=== PATIENT | female | born 1940 | race Caucasian/White ===

== ENCOUNTER 2017-11-10 08:54 | Emergency (ER) | payer MEDICARE ==
[2017-11-10 10:44] LABS: #Eosinphils 0.3 thou/uL (0.0-0.7); #Lymphocytes 1.4 thou/uL (1.20-3.40); #Monocytes 0.7 thou/uL (0.11-0.59); #Neutrophils 2.5 thou/uL (1.40-6.50); %Basophils 0.2 % (0.0-1.0); %Eosinophils 5.6 % (0.0-10.0); %Lymphocytes 28.6 % (21.0-51.0); %Monocytes 14.5 % (0.0-10.0); %Neutrophils 51.1 % (42.0-75.0); Hemoglobin 14.8 g/dL (12.0-16.0); Mean Corpuscular Hemoglobin 29.2 pg (27.0-31.0); Mean Corpuscular Volume 88.6 fl (81.0-99.0); Mean Platelet Volume 8.5 fL (7.4-10.4); Platelet Count 167 thou/uL (130-400); RBC Distribution Width 12.8 % (11.5-14.5); Red Blood Cell (RBC) Count 5.05 mill/uL (4.20-5.40)
[2017-11-10 11:09] LABS: ALT (SGPT) 16 U/L (8-55); AST (SGOT) 22 U/L (5-34); Albumin 3.9 g/dL (3.4-4.8); Alkaline Phosphatase 80 U/L (40-150); Anion Gap 10 mmol/L (10-20); BUN (Urea Nitrogen) 15 mg/dL (9.8-20.1); Bilirubin, Total 0.3 mg/dL (0.2-1.2); Calc. Creatinine Clearance 0 mL/min (70-130); Carbon Dioxide 27 mmol/L (23-31); Chloride 104 mmol/L (98-107); Estimated GFR-MDRD 66; Globulin 2.5 g/dL (2.4-3.5); Glucose 99 mg/dL (83-110); Lipase 12 U/L (8-78); Protein, Total 6.4 g/dL (6.0-8.3); Sodium 137 mmol/L (136-145)
--- NOTE | 2017-11-10 11:19 | RAD ---
PA AND LATERAL CHEST: Date: 11/10/17 HISTORY: Cough, chest pain. Shortness of breath. COMPARISON: 09/23/16. FINDINGS: Lungs remain hyperinflated. There is mild flattening of the hemidiaphragms with suggestion of lucenci es within the upper lobes likely related to emphysematous changes. The linear densities at the left l amari base are again seen and are stable when compared to the prior study, and were also seen on study on 02/13/07, and while slightly more prominent than on that exam, are probably related to areas of sc arring. No discrete pulmonary nodule, mass, or pleural effusion is seen. Vascular calcifications seen in thoracic aorta. [place] screws again overlie the humeral head. IMPRESSION: 1. Stable chest without evidence of an acute cardiopulmonary process. 2. COPD. POS: [facility]
[2017-11-10] MEDS ORDERED: methylPREDNISolone Sod Succ/PF 125 MG/2 ML VIAL ONE (13:32)
== END 2017-11-10 14:34 | disposition home or self-care (01) ==
LOC: ERS 08:54
DX: J44.9 Chronic obstructive pulmonary disease, unspecified (principal); E03.9 Hypothyroidism, unspecified; E78.5 Hyperlipidemia, unspecified; F32.9 Major depressive disorder, single episode, unspecified; F17.210 Nicotine dependence, cigarettes, uncomplicated; Z79.82 Long term (current) use of aspirin; Z79.899 Other long term (current) drug therapy
CPT/HCPCS: 71046; 80053; 82274; 83690; 85025; 87045; 87046; 87449; 87899; 93005; 94640; 96361; 96374; J2930; J7620

== ENCOUNTER 2018-01-06 07:10 | Outpatient (CLI) | payer MEDICARE ==
--- NOTE | 2018-01-06 10:50 | CT ---
CT ABDOMEN WITH AND WITHOUT IV CONTRAST CT PELVIS WITH IV CONTRAST: Date: 01/06/18 HISTORY: Irritable bowel syndrome with diarrhea. Weight loss. COMPARISON: None available. FINDINGS: There is minimal scarring versus atelectasis at the right lung base. Lung bases are otherwise clear. Degenerative changes are seen in the spine. There is unilateral left-sided pars defect on the left at L5 with mild irregularity of the pars interarticularis on the right without definite pars defect vis ualized. There is a punctate, nonobstructing superior pole right renal calculus. There is also mild scarring i nvolving the superior pole of the right kidney. Kidneys otherwise demonstrate a normal CT appearance bilaterally. Calcified granulomata are seen in the spleen. The liver, pancreas, bilateral adrenal glands, and opacified small bowel demonstrate a normal CT appe arance. There is colonic diverticulosis. The appendix is visualized and normal in caliber. There is a slightl y lobulated appearance to the uterine fundus which could be related to fibroid, but this cannot be de finitely characterized on this exam. No free fluid, fluid collection, or lymphadenopathy is seen in the abdomen or pelvis. IMPRESSION: 1. No acute findings are seen in the abdomen or pelvis. 2. Punctate, nonobstructing superior pole right renal calculus with mild scarring in the superior po le of right kidney. 3. Colonic diverticulosis. 4. No CT evidence of appendicitis. 5. No acute findings are seen in the abdomen or pelvis. 6. Pars defects at L5. POS: [facility]
[2018-01-06] MEDS ORDERED: Iopamidol 370 76% 100 ML VIAL ONE (13:05)
== END 2018-01-06 07:11 | disposition home or self-care (01) ==
LOC: CT 07:10
PROVIDERS: ATTEND Internal Medicine Gastroenterology
DX: K58.0 Irritable bowel syndrome with diarrhea (principal); R19.7 Diarrhea, unspecified; R63.4 Abnormal weight loss; N20.0 Calculus of kidney; K57.30 Diverticulosis of large intestine without perforation or abscess without bleeding
CPT/HCPCS: 74178

== ENCOUNTER 2018-10-28 08:31 | Inpatient (IN) | payer MEDICARE ==
--- NOTE | 2018-10-28 09:37 | CT ---
CT HEAD NONCONTRAST: HISTORY: Fall. Head injury. COMPARISON: 12/19/2015 FINDINGS: A small amount of irregular-shaped, hyperdense fluid lies on each side of the anterior falx. A small amount of the fluid extends into a sulcus at the medial aspect of the right frontal lobe. There is no mass effect or shift of midline structures. Diffuse cortical atrophy, chronic ischemic small vess el disease, and old left frontoparietal infarct are stable. Visualized paranasal sinuses remain well aerated. Comminuted, slightly depressed nasal bone fracture is apparent on the inferior-most images , with fluid and mucosal thickening in the maxillary sinuses and ethmoid air cells. IMPRESSION: 1. Small amount of subdural and subarachnoid hemorrhage involving and adjacent to the anterior falx. Findings were called to Dr. Graf in the emergency department at 0902 hours. 2. Nasal bone fracture and facial injury, partially visualized. CT face is pending. CODE CR POS: [facility]
[2018-10-28 09:39] LABS: Bilirubin Negative (Negative); Blood, Urine Small (Negative); Clarity CLEAR (Clear); Glucose, Urine (Dipstick) Negative (Negative); Leukocyte Negative (Negative); Nitrite Negative (Negative); Protein, Urine (Dipstick) Negative (Neg-Trace); Specific Gravity, Urine 1.012 (1.002-1.036); Urobilinogen 0.2 mg/dL (0.2-1.0); pH, Urine 6.5 (5.0-9.0)
[2018-10-28 09:41] LABS: #Basophils 0.1 thou/uL (0.0-0.2); #Eosinphils 0.2 thou/uL (0.0-0.7); #Lymphocytes 1.2 thou/uL (1.20-3.40); #Monocytes 0.9 thou/uL (0.11-0.59); #Neutrophils 12.4 thou/uL (1.40-6.50); %Basophils 0.5 % (0.0-1.0); %Eosinophils 1.3 % (0.0-10.0); %Monocytes 5.8 % (0.0-10.0); %Neutrophils 84.5 % (42.0-75.0); Hemoglobin 16.1 g/dL (12.0-16.0); Mean Corpuscular HGB CONC 31.4 g/dL (32.0-36.0); Mean Corpuscular Hemoglobin 28.6 pg (27.0-31.0); Mean Platelet Volume 8.7 fL (7.4-10.4); Platelet Count 208 thou/uL (130-400); RBC Distribution Width 13.2 % (11.5-14.5); Red Blood Cell (RBC) Count 5.65 mill/uL (4.20-5.40); White Blood Cell (WBC) Count 14.7 thou/uL (4.8-10.8)
--- NOTE | 2018-10-28 09:41 | CT ---
CT FACE NONCONTRAST: History: Fall, facial injury. FINDINGS: Large amount of swelling over the nasal bridge and forehead. Comminuted fracture of the base of the n joel bones is present with minimal rightward deviation of the anterior portion of the nasal bones. Sm all amount of subcutaneous gas from the laceration. There is acute leftward angulation of the anterio r nasal septum with an acute nondisplaced fracture. Blood and mucosal thickening are present througho ut the ethmoid air cells. Right maxillary sinus is mainly filled with acute hemorrhage. Fluid in the left maxillary sinus predominately represents chronic mucosal thickening and inspissated mucus. The g lobes, mandible and zygomatic arches are intact. There are degenerative changes of each temporomandib ular joint. IMPRESSION: Comminuted mildly displaced nasal bone fracture. Fracture of the nasal septum. Overlying soft tissue swelling with some blood in the paranasal sinuses. POS: [facility]
[2018-10-28 09:42] LABS: Bacteria/HPF None Seen HPF (None Seen); Hyaline Casts/LPF 7-10 HYALINE CAST LPF (0-3 Hyaline); Pathc Cast-AUWi Flag 2.32 (0-2.49); Squamous Epithelial 0-3 HPF (0-3); WBC/HPF 0-3 HPF (0-3)
--- NOTE | 2018-10-28 09:43 | CT ---
NONCONTRAST CT CERVICAL SPINE: Date: 10/28/18 HISTORY: Unwitnessed fall last night. Unknown down time. TECHNIQUE: Contiguous axial CT images are obtained through the cervical spine from the skull base to the T1-2 le juliette. Sagittal and coronal reformatted images are provided. FINDINGS: No fracture or subluxation is seen involving the cervical spine. There are scattered degenerative noble nges in the cervical spine, including facet degenerative changes. There is narrowing of the C5-6 inte rvertebral disc space with posterior osteophyte formation seen at this level. However, there is no si gnificant bony encroachment on the central spinal canal at any level. There is mild right-sided neura l foraminal narrowing at the C3-4 level with mild left-sided neural foraminal narrowing at the C5-6 l evel. The prevertebral soft tissues are within normal limits. There is fluid and increased density material in each maxillary antrum suggesting hemorrhage. There is also a small amount of fluid within the pos terior nasopharynx. IMPRESSION: 1. No fracture or subluxation involving the cervical spine. 2. Mild degenerative changes in the spine. 3. Small amount of hemorrhage in each maxillary antrum with fluid in the posterior nasopharynx. This is better evaluated on CT facial bones. POS: [facility]
[2018-10-28 09:49] LABS: PTT 28.8 SEC (22.9-36.1); Prothrombin Time 12.8 SEC (12.0-14.7)
[2018-10-28 09:50] LABS: Benzodiazepine Screen Detected (NotDetected); Medtox Reader # READER 1
[2018-10-28 09:51] LABS: Amphetamine Not Detected (NotDetected); Barbiturates Screen Not Detected (NotDetected); Cocaine Metabolite Screen Not Detected (NotDetected); Medtox Control Line Valid? VALID (VALID); Methadone Not Detected (NotDetected); Methamphetamine Not Detected (NotDetected); Opiate Screen Not Detected (NotDetected); Oxycodone Screen Not Detected (NotDetected); Phencyclidine (PCP) Not Detected (NotDetected); THC/Cannabinoid Screen Not Detected (NotDetected); Tricyclic Screen Not Detected (NotDetected)
[2018-10-28 10:10] LABS: ALT (SGPT) 13 U/L (8-55); AST (SGOT) 25 U/L (5-34); Albumin 4.4 g/dL (3.4-4.8); Alkaline Phosphatase 81 U/L (40-150); Anion Gap 15 mmol/L (10-20); BUN (Urea Nitrogen) 17 mg/dL (9.8-20.1); Bilirubin, Total 0.7 mg/dL (0.2-1.2); Calc. Creatinine Clearance 0 mL/min (70-130); Calcium 9.7 mg/dL (7.8-10.44); Carbon Dioxide 22 mmol/L (23-31); Chloride 106 mmol/L (98-107); Estimated GFR-MDRD 69; Globulin 2.8 g/dL (2.4-3.5); Glucose 102 mg/dL (83-110); Potassium 4.2 mmol/L (3.5-5.1); Protein, Total 7.2 g/dL (6.0-8.3); Sodium 139 mmol/L (136-145)
[2018-10-28 10:12] LABS: Acetaminophen Less than 6.0 mcg/mL (10.0-30.0); Alcohol Less than 10 mg/dL (Less than 10); CK (CPK) 321 U/L (29-168); Salicylate Less than 8.0 mg/dL (15.0-30.0)
[2018-10-28] MEDS ORDERED: Promethazine HCl 25 MG/ML VIAL IM PRN (11:27)
[2018-10-28] MEDS ORDERED: Dextrose 50% Abboject 50 ML SYRINGE SLOW IVP PRN (11:27)
[2018-10-28] MEDS ORDERED: Dextrose 5% in Water 1,000 ML IV PRN (11:27)
[2018-10-28] MEDS ORDERED: hydrALAZINE 20 MG/ML VIAL SLOW IVP PRN (11:27)
[2018-10-28] MEDS ORDERED: Ondansetron PF 4 MG/2 ML Vial IVP PRN (11:27)
--- NOTE | 2018-10-28 11:43 | HP ---
TRAUMA SURGEON: Rui Krishna DO CONSULTING PHYSICIAN: Dr. Hussein, Neurosurgery. HISTORY OF PRESENT ILLNESS: Ms. Gonzalez is a 78-year-old female, who was brought to the Emergency Department after a suicidal attempt, where she reports drinking whiskey and taking 100 mg of Xanax yesterday. She reports she has been wanting to for the past 3 years since her . The patient was found at her assisted living facility face down with a blood around her. EMS was called and she arrived to the Emergency Department, where she received a CT of the head and C-spine, as well as the face. At that time, it demonstrated she had a subdural and subarachnoid hemorrhages as well as a nasal bone fracture. Neurosurgery was consulted, who recommended a repeat head CT and neuro checks. REVIEW OF SYSTEMS: All additional review of systems negative except as indicated. PAST MEDICAL HISTORY: COPD, suicidal ideation, CVA, hypertension, and hypothyroidism. PAST SURGICAL HISTORY: None. SOCIAL HISTORY: The patient lives independently at an assisted living facility. She has been suicidal since her 3 years ago. She smokes cigarettes every day. Denies daily alcohol use and denies history of drug use. MEDICATIONS: 1. Synthroid. 2. Plavix. 3. Zocor. 4. Lisinopril. 5. Zoloft. 6. Xanax. 7. Aspirin. 8. One a day women's vitamin. 9. Vitamin B12. 10. Lasix. 11. Estradiol. ALLERGIES: CODEINE. PHYSICAL EXAMINATION: VITAL SIGNS: Blood pressure 166/84, pulse 92, respirations 20, oxygen saturation 92% on room air, and temperature 97.9 degrees. PRIMARY ASSESSMENT: Airway intact, but with blood in the oropharynx. Bleeding seems to be controlled. Adequate breath sounds bilaterally. 2+ pulses in bilateral radial, femorals, and DPs. GCS is 14, negative 1 for eyes. Gross motor and sensation are intact. Pupils are equal, round, and reactive to light. Blood in the oropharynx and dried blood in the bilateral nares, but no signs of any active bleeding. No bruises noted. SECONDARY SURVEY: HEAD: Normocephalic. Periorbital bruising bilaterally, swelling of the mid face and nasal bone, swelling of the upper lip. No palpable skull deformities or tenderness. EYES: Pupils 3 to 2 bilaterally. Pupils are equal, round, and reactive to light. ENT: No hemotympanum. Positive epistaxis. No septal hematoma. Midface is stable. Positive blood in the oropharynx. Dentition is intact. No anterior neck injury or crepitus. C-spine: No step-offs or deformities. Nontender. C-collar is in place. ABDOMEN: Soft, nontender, and nondistended. PELVIS: Stable to manipulation. Nontender. No bruises. RECTAL: Deferred. GENITOURINARY: Deferred. EXTREMITIES: No gross palpable deformities. No abrasions or ecchymosis noted. 2+ pulses in the bilateral femorals, radials, and DP. BACK OR SPINE: No step-offs or deformities or tenderness to palpation of the thoracic or lumbar spine. No abrasions or ecchymosis noted. 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 Plantar flexion and dorsiflexion. Gross motor and sensation intact. GCS 14, -1 for eyes. LABORATORY VALUES: White count 14.7, hemoglobin 16.1, hematocrit 51.4, and platelets 208. INR 1.0. Sodium 139, potassium 4.2, chloride 106, carbon dioxide 22, BUN 12, and creatinine 0.81. Toxicology screen positive for benzodiazepines. Plasma alcohol is less than 10. DIAGNOSTIC FINDINGS: CT of the brain demonstrates small amount of subdural and subarachnoid hemorrhages involving adjacent to the anterior falx and a nasal bone fracture and facial injury. ASSESSMENT: 1. Status post fall from standing. 2. Suicidal attempt with suicidal ideations. 3. Subdural and subarachnoid hemorrhages. 4. Nasal bone fracture. 5. History of chronic obstructive pulmonary disease, suicidal ideations, cerebrovascular accident, hypertension, and hypothyroidism. PLAN: The patient will be admitted to the ICU. Q.1 hour neuro checks. Goal systolic blood pressure is less than 160 mmHg. Elevate the patient's head at 30 degrees. Monitor mentation closely and advise the Trauma Team immediately if any changes in GCS. We will keep the patient n.p.o. for now. Neurosurgery, Dr. Hussein was consulted pending his formal recommendations. We will also consult metal trimmer for nasal bone fractures. Close monitoring of the patient's airway is also warranted as she has significant midface swelling and blood in her oropharynx. Will continuous pulse ox and suction at bedside. The patient will be on suicidal precautions as well. She can see Physical and Occupational Therapy as well as Speech for cognitive and swallow evaluation. The patient was seen and examined by Dr. Krishna and myself today in the Emergency Department. Job ID: [id number] MTDD
[2018-10-28 12:14] VITALS: BMI 26.2
[2018-10-28] MEDS: Dexamethasone 4 mg/ml Vial SLOW IVP SCH ×2 (12:39→18:36)
[2018-10-28] MEDS: Sodium Chloride 0.9% 1,000 ML IV SCH ×2 (12:50→21:07)
[2018-10-28] MEDS: Morphine 2 MG/ML SYRINGE SLOW IVP PRN ×2 (13:23→15:52)
--- NOTE | 2018-10-28 20:32 | CON ---
DATE OF CONSULTATION: 10/28/2018 This is a 50-minute initial patient evaluation of which greater than 50% of the exam was spent in counseling and coordinating the patient's care. Remainder of the exam was spent in review of the patient's medical records and review of appropriate imaging studies. CHIEF COMPLAINT: Status post fall with subdural and traumatic subarachnoid hemorrhage along the anterior falx. SUBJECTIVE: Ms. Gonzalez is a 78-year-old female, who presented to [facility] when she was found down by [facility] staff members. Apparently, the patient supposedly attempted to commit suicide in which she overdosed on Xanax and consumed a significant amount of alcohol. She was found with significant bruising to the entire face and again presented to the emergency room. Review of patient's head CT notes, small subdural and traumatic subarachnoid hemorrhage along the anterior falx. The patient's daughter and are present at bedside. The patient was on 81 mg aspirin and Plavix for history of stroke several years ago. The patient does not complain of any neck pain. PHYSICAL EXAMINATION: The patient prefers to keep her eyes closed. She has significant abrasions to her face, as well as significant ecchymosis surrounding the bilateral eyes. Pupils are equal, round, and reactive bilaterally and she is able to open the eyes to command. GCS currently is 15. The patient follows commands in all 4 extremities. She has no tenderness to palpation in the cervical spine. IMPRESSION AND DIAGNOSIS: Status post fall with suspected attempted suicide with benzodiazepine and ethanol overdose, found with small subdural hematoma and traumatic subarachnoid hemorrhage along the anterior falx. PLAN: Discussed the patient's case and imaging with Dr. Hussein. Her cervical spine CT is negative for fracture. Her Plavix and aspirin are held. Our trauma colleagues have graciously admitted the patient. We will continue to follow her. She will likely have concussive-like syndrome and I have explained this in great detail to the patient's family. Also let them know that given the trace amount of blood along the falx, the patient does not require neurosurgical intervention. She likely will need inpatient psychiatric treatments given the suspected attempted suicide. At that time, the patient is neurologically stable and we have asked for q.1 hour neuro checks. We again will plan to repeat head CT in the morning, sooner should symptoms dictate. I would like her systolic blood pressure to be less than 150. Please call with any changes in patient's neurologic status. Job ID: [id number]
[2018-10-28] MEDS: Famotidine/PF 20 mg/2ml Vial SLOW IVP SCH (21:07)
[2018-10-29] MEDS: Dexamethasone 4 mg/ml Vial SLOW IVP SCH ×2 (01:13→06:21)
[2018-10-29 05:57] LABS: Anion Gap 13 mmol/L (10-20); BUN (Urea Nitrogen) 19 mg/dL (9.8-20.1); Calc. Creatinine Clearance 68 mL/min (70-130); Calcium 8.9 mg/dL (7.8-10.44); Carbon Dioxide 20 mmol/L (23-31); Chloride 109 mmol/L (98-107); Estimated GFR-MDRD 70; Glucose 141 mg/dL (83-110); Magnesium 2.1 mg/dL (1.6-2.6); Phosphorus 4.5 mg/dL (2.3-4.7); Potassium 4.4 mmol/L (3.5-5.1); Sodium 138 mmol/L (136-145)
[2018-10-29 06:05] LABS: #Lymphocytes 1.5 thou/uL (1.20-3.40); #Monocytes 0.2 thou/uL (0.11-0.59); #Neutrophils 12.9 thou/uL (1.40-6.50); %Basophils 0.1 % (0.0-1.0); %Eosinophils 0.1 % (0.0-10.0); %Lymphocytes 10.1 % (21.0-51.0); %Monocytes 1.5 % (0.0-10.0); %Neutrophils 88.2 % (42.0-75.0); Hemoglobin 14.6 g/dL (12.0-16.0); Mean Corpuscular HGB CONC 31.3 g/dL (32.0-36.0); Mean Corpuscular Hemoglobin 29.2 pg (27.0-31.0); Mean Corpuscular Volume 93.2 fL (78.0-98.0); Mean Platelet Volume 9.1 fL (7.4-10.4); Platelet Count 215 thou/uL (130-400); White Blood Cell (WBC) Count 14.7 thou/uL (4.8-10.8)
[2018-10-29] MEDS: Sodium Chloride 0.9% 1,000 ML IV SCH (06:22)
--- NOTE | 2018-10-29 08:26 | CT ---
PRELIMINARY REPORT/[facility]/EMERGENTY AFTER-HOURS PROCEDURE CT Head Without Contrast EXAM DATE/TIME: 10/29/2018 4:27 AM CLINICAL HISTORY: 78 years old, female; Injury or trauma; Fall; Follow-up exam; Blunt trauma (contusions or hematomas); Consciousness not specified; Patient HX: F/u, PT had recent fall. Evaluate tbi. TECHNIQUE: Axial computed tomography images of the head/brain without contrast. COMPARISON: CT Brain WO Con 10/28/2018 8:53 AM FINDINGS: Brain: Recent comparison exam showed small amounts of subarachnoid blood in the frontal regions, and probably a very small amount of subdural blood adjacent to the anterior falx on the left. The previou sly seen areas of hemorrhage are now barely perceptible, with only minimal visible subarachnoid and parafalcine subdural blood in the frontal regions. No definite new hemorrhage in the interval. No significant mass effect or midline shift. There is dec reased attenuation in the periventricular white matter, likely from microvascular disease. Small old infarcts in the inferior right occipital region and posterior left parietal region, unchanged. No definite acute infarct by CT. Ventricles: Ventricle size is normal for age. Bones/joints: No definite new skull fracture. Sinuses: Paranasal sinus opacities similar to recent comparison exam. Mastoid air cells: No significant acute finding. IMPRESSION: 1. The previously seen areas of hemorrhage are now barely perceptible, with only minimal visible suba rachnoid and parafalcine subdural blood in the frontal regions. 2. No definite new hemorrhage. 3. No significant mass effect or midline shift. 4. Other findings discussed above. Thank you for allowing us to participate in the care of your patient. Dictated and Authenticated by: Gary Higgins MD 10/29/2018 5:00 AM Central Time ([place] & [place]) FINAL REPORT CT HEAD NONCONTRAST: Date: 10-29-18 Performed on emergency basis at 0428 hours. History: Intracranial hemorrhage. Follow up. Comparison: 10-28-18 FINDINGS: I agree with the preliminary report by Dr. Higgins from [facility]. Subdural and subarachnoid he morrhage in the frontal fossa has decreased since the prior study. No new hemorrhage. Other post-trau matic changes of the face and chronic type findings are otherwise stable. Code QA POS: [facility]
--- NOTE | 2018-10-29 10:26 | PRG ---
DATE OF SERVICE: 10/29/2018 This is a 30-minute initial visit note, in which 30 minutes were spent reviewing the imaging, record, evaluation, examination, patient formulation of plan. Greater than 50% of the time was spent in counseling on Marion Gonzalez. Ms. Gonzalez was admitted for head injury. She has trace traumatic subarachnoid hemorrhage and falcine acute subdural hematoma. This is stable on repeat head CT. She has bilateral ecchymoses around the periorbital region, but otherwise is nonfocal. We will arrange a repeat head CT in our clinic in 1 month. Job ID: [id number]
[2018-10-29] MEDS: Famotidine/PF 20 mg/2ml Vial SLOW IVP SCH (10:34)
[2018-10-29] MEDS ORDERED: traMADol HCl 50 MG TAB PO PRN ×2 (11:04)
[2018-10-29] MEDS ORDERED: Non-Formulary Item 1 EACH (Fluticasone/Salmeterol [Advair Diskus 100/50] 1 PUFF) IH PRN (11:05)
[2018-10-29] MEDS ORDERED: Mometasone/Formoterol 120 PUFF INHALER INH PRN (11:27)
[2018-10-29] MEDS ORDERED: Albuterol Sulfate 1.25 MG/3 ML NEB INH PRN (11:45)
[2018-10-29] MEDS ORDERED: Acetaminophen 500 MG TAB PO SCH (12:00)
--- NOTE | 2018-10-29 15:14 | PRG ---
DATE OF SERVICE: 10/29/2018 SUBJECTIVE: The patient was seen this morning sitting up in bed in the ICU with family friend at bedside. She was very alert and cheerful on the team's arrival. She reported she had no pain and was feeling much better. She had significant decrease in her facial swelling. She was maintaining her airway well. She reported she was very hungry and would like to have solid food for breakfast. She had not been out of bed yet and Goldman catheter was still in place. She had no acute overnight events. She received a repeat CT head this morning, which demonstrated no significant change in the size of her traumatic brain injury, head bleeds. OBJECTIVE: VITAL SIGNS: Blood pressure 145/65, heart rate 89, respirations 19, oxygen saturation 100% on room air. GENERAL: Well-appearing elderly female, sitting up in bed with minimal facial swelling. NEURO: GCS is 15. Alert and oriented x3. Following all commands and moving all extremities spontaneously. PULMONARY: Equal chest rise and fall. Lung mackey clear bilaterally. No signs of acute respiratory distress. CARDIO: Regular rate and rhythm. No murmurs, gallops, or rubs. ABDOMEN: Soft, nontender, nondistended. FACE: Decreased mid face swelling. Decrease in swelling over the nasal bridge, small abrasion over the nasal bridge. No significant bleeding. No dental trauma noted. EXTREMITIES: 2+ pulses in all extremities. Gross motor and sensation is intact in all 4 extremities. No significant swelling noted. LABORATORY FINDINGS: White blood cell count 14.7, hemoglobin 14.6, hematocrit 46.6, platelets 215. Sodium 138, potassium 4.4, chloride 109, carbon dioxide 20, BUN 19, creatinine 0.80, glucose 141, phos 4.2, magnesium 2.1. DIAGNOSTIC FINDINGS: CT of the brain this morning demonstrates the previous seen area of hemorrhage are now barely perceptible with only minimal visible subarachnoid and parafalcine subdural blood in the frontal regions. No definite new hemorrhages. No significant mass effect or midline shift. Other findings as described above. ASSESSMENT: 1. Status post fall from standing, syncopal event. 2. Suicidal attempt with persistent suicidal ideation. 3. Subdural and subarachnoid hemorrhages, stable. 4. Nasal bone fracture. 5. History of chronic obstructive pulmonary disease, suicidal ideations, cerebrovascular accident, hypertension, hypothyroidism, and depression. PLAN: The patient will be moved from the ICU to regular nursing for bed with a sitter present at all times. She is to be on suicide precautions. [facility] did see the patient today and recommended inpatient psych. They did not feel that she would be appropriate to send the patient somewhere where there was not psychiatry available. Dr. Hussein saw the patient and examined her. CT head and recommended one month followup with repeat head CT. Dr. Holm with [facility] recommended follow up in clinic in 7 to 10 days for her nasal bone fracture. We will discontinue her Goldman and her IV fluids. She will receive a regular diet and we will start the indicated home medications. She will receive supportive care as well as physical and occupational therapy. Speech language pathology will also see the patient for both swallowing and cognitive evaluation. The patient was seen and examined by Dr. Krishna and myself this morning during rounds. Job ID: [id number]
[2018-10-29 16:30] VITALS: BP 129/69
[2018-10-29 17:12] VITALS: TEMP 97.8
[2018-10-29] MEDS ORDERED: Atorvastatin Calcium 20 MG TAB PO SCH (21:00)
[2018-10-29] MEDS ORDERED: Famotidine 20 MG TAB PO SCH (21:00)
--- NOTE | 2018-10-29 22:05 | DIS ---
DATE OF ADMISSION: 10/28/2018 DATE OF DISCHARGE: 10/29/2018 ADMISSION DIAGNOSES: Syncopal fall from standing, subdural hematoma, subarachnoid hematoma, nasal bone fracture, suicide attempt, suicidal ideations. DISCHARGE DIAGNOSES: Syncopal fall from standing, subdural hematoma, subarachnoid hematoma, nasal bone fracture, suicidal ideations, suicide attempt, benzodiazepine overdose. CONSULTING PHYSICIAN: Dr. Hussein and Dr. Holm. PROCEDURES: None. HOSPITAL COURSE: Ms. Gonzalez arrived to the emergency department via EMS after she was found face down in her assisted living facility. EMS reported the patient stated that she took 100 mg of Xanax and drank alcohol in an attempt to commit suicide on the third year anniversary of her 's . She received a CT of the head C-spine, as well as chest x-ray which demonstrated subdural and subarachnoid hemorrhages and nasal bone fracture. Dr. Hussein with Neurosurgery was consulted, as well as Dr. Holm with OMFS. Repeat head CT was completed the next morning, which demonstrated no changes in her traumatic brain injury. She was admitted to the CCU and received q.1 hour neuro checks and close blood pressure monitoring. The next morning, [facility] saw the patient and recommended inpatient psych. They did not believe that she was safe to go home. Trauma Surgery team agreed and rehabilitation case coordinator started to work on potential location for inpatient psych. At the time of discharge, she was tolerating a regular diet. Goldman was discontinued and she was voiding without difficulties. Pain was well controlled and she was ambulating with assistance. She will follow up with Dr. Hussein in 1 month. She will hold aspirin and Plavix until that time. She will follow up with Dr. Holm in 7 to 10 days for re-evaluation of a nasal bone fracture. DISCHARGE DISPOSITION: Inpatient psychiatry. DISCHARGE CONDITION: Satisfactory. PHYSICAL EXAMINATION: VITAL SIGNS: Blood pressure 140/59, pulse 84, respirations 18, oxygen saturation 100% on room air. GENERAL: The patient is alert and awake. GCS is 15. Denies any pain. No signs of agitation or distress. PULMONARY: Equal clear breath sounds bilaterally. Equal chest rise and fall. No signs of acute respiratory distress. CARDIAC: Regular rate and rhythm. No murmurs, gallops, or rubs. GASTROINTESTINAL: Abdomen is soft, nontender, nondistended. ENT: Small abrasion to the bridge of nose with some minimal swelling. Significant improvement in midface swelling. No blood in the oropharynx. No blood in the bilateral nares. She does have bilateral periorbital bruising, ecchymosis rather with no significant swelling. No changes in vision. EXTREMITIES: Gross motor and sensation intact in all 4 extremities. No swelling noted. 2+ pulses in all extremities. DISCHARGE INSTRUCTIONS: The patient will be discharged to a animal services officer to be transported to inpatient psych, where she will receive further psychiatric evaluation. Activities as tolerated with no restrictions. She can have a regular diet. Aspirin and Plavix will be held until her followup with Dr. Hussein. She will also need a CT scan before her followup visit with Dr. Hussein. DISCHARGE MEDICATIONS: She will be discharged with, 1. Tylenol. 2. Advair Diskus. 3. Levalbuterol HFA. 4. Levothyroxine. 5. Zoloft. 6. Simvastatin. 7. Lipitor. 8. Estradiol. 9. Furosemide. 10. Lisinopril. FOLLOWUP INSTRUCTIONS: The patient will follow up with Dr. Hussein, Neurosurgery, in 1 month with a repeat head CT before the appointment. She will also follow up with Dr. Holm in 7 to 10 days. This is merely a summary of the patient's hospitalizations. For further details, please see her medical record in its entirety. Job ID: [id number]
[2018-10-30] MEDS ORDERED: Levothyroxine Sodium 25 MCG TAB PO SCH (06:00)
[2018-10-30] MEDS ORDERED: Levothyroxine Sodium 112 MCG TAB PO SCH (06:00)
[2018-10-30] MEDS ORDERED: Non-Formulary Item 1 EACH (Levothyroxine Sodium [Synthroid] 137 MCG) PO SCH (09:00)
== END 2018-10-29 18:44 | disposition short-term general hospital (02) | DRG 83 ==
LOC: ERS 08:31 → CCU 11:49
PROVIDERS: ADMIT Surgery; ATTEND Surgery
DX: S06.6X9A Traumatic subarachnoid hemorrhage with loss of consciousness of unspecified duration, initial encounter (principal); R45.851 Suicidal ideations; W19.XXXA Unspecified fall, initial encounter; Y92.129 Unspecified place in nursing home as the place of occurrence of the external cause; S06.5X9A Traumatic subdural hemorrhage with loss of consciousness of unspecified duration, initial encounter; S02.2XXA Fracture of nasal bones, initial encounter for closed fracture; J44.9 Chronic obstructive pulmonary disease, unspecified; I10 Essential (primary) hypertension; E03.9 Hypothyroidism, unspecified; F17.210 Nicotine dependence, cigarettes, uncomplicated; T42.4X2A Poisoning by benzodiazepines, intentional self-harm, initial encounter; T51.0X2A Toxic effect of ethanol, intentional self-harm, initial encounter; Z86.73 Personal history of transient ischemic attack (TIA), and cerebral infarction without residual deficits
CPT/HCPCS: 36415; 36416; 51702; 70450; 70486; 72125; 80048; 80053; 80306; 80307; 81003; 81015; 82550; 83735; 84100; 84484; 85025; 85610; 85730; 93005; A4353; G0390; J0360; J1100; J2270; S0028

== ENCOUNTER 2018-11-01 19:42 | Emergency (ER) | payer MEDICARE ==
[~2018-11-01 19:42] MED LIST: ISOVUE-370 76%-LOCM 1 ML ONE
[2018-11-01 20:20] LABS: #Eosinphils 0.1 thou/uL (0.0-0.7); #Lymphocytes 2.1 thou/uL (1.20-3.40); #Neutrophils 7.2 thou/uL (1.40-6.50); %Basophils 0.2 % (0.0-1.0); %Eosinophils 1.2 % (0.0-10.0); %Lymphocytes 19.8 % (21.0-51.0); %Monocytes 9.4 % (0.0-10.0); %Neutrophils 69.4 % (42.0-75.0); Hemoglobin 14.3 g/dL (12.0-16.0); Mean Corpuscular HGB CONC 32.2 g/dL (32.0-36.0); Mean Corpuscular Hemoglobin 29.1 pg (27.0-31.0); Mean Corpuscular Volume 90.5 fL (78.0-98.0); Mean Platelet Volume 8.6 fL (7.4-10.4); Platelet Count 239 thou/uL (130-400); RBC Distribution Width 13.1 % (11.5-14.5); Red Blood Cell (RBC) Count 4.93 mill/uL (4.20-5.40); White Blood Cell (WBC) Count 10.3 thou/uL (4.8-10.8)
[2018-11-01 20:25] LABS: PTT 30.3 SEC (22.9-36.1); Prothrombin Time 12.8 SEC (12.0-14.7)
[2018-11-01 20:34] LABS: ALT (SGPT) 20 U/L (8-55); AST (SGOT) 20 U/L (5-34); Acetaminophen Less than 6.0 mcg/mL (10.0-30.0); Alcohol Less than 10 mg/dL (Less than 10); Alkaline Phosphatase 66 U/L (40-150); Anion Gap 13 mmol/L (10-20); BUN (Urea Nitrogen) 11 mg/dL (9.8-20.1); Bilirubin, Total 0.6 mg/dL (0.2-1.2); CK (CPK) 100 U/L (29-168); Calc. Creatinine Clearance 0 mL/min (70-130); Calcium 9.3 mg/dL (7.8-10.44); Carbon Dioxide 27 mmol/L (23-31); Chloride 101 mmol/L (98-107); Estimated GFR-MDRD 69; Globulin 2.4 g/dL (2.4-3.5); Glucose 120 mg/dL (83-110); Potassium 3.9 mmol/L (3.5-5.1); Protein, Total 6.4 g/dL (6.0-8.3); Salicylate Less than 8.0 mg/dL (15.0-30.0); Sodium 137 mmol/L (136-145)
--- NOTE | 2018-11-01 20:40 | CT ---
CT BRAIN WITHOUT CONTRAST: History: Hypertension. Dizziness. Headache. Comparison: CT brain 3 days prior. FINDINGS: No acute hemorrhage or infarct. No midline shift of mass effect. Previously described subdural and caceres barachnoid hemorrhage has resolved. Multifocal old bilateral infarctions. Moderate microvascular ischemic changes. IMPRESSION: 1. Interval resolution of subdural and subarachnoid hemorrhage. No acute abnormality. 2. Recent nasal septal fracture with resolved hemosinus. POS: [facility]
[2018-11-01 20:54] LABS: Bilirubin Negative (Negative); Blood, Urine Small (Negative); Clarity CLEAR (Clear); Glucose, Urine (Dipstick) Negative (Negative); Leukocyte Small (Negative); Nitrite Negative (Negative); Protein, Urine (Dipstick) Negative (Neg-Trace); Specific Gravity, Urine 1.004 (1.002-1.036); Urobilinogen 0.2 mg/dL (0.2-1.0)
[2018-11-01 20:57] LABS: Bacteria/HPF None Seen HPF (None Seen); Hyaline Casts/LPF 0-3 HYALINE CAST LPF (0-3 Hyaline); Pathc Cast-AUWi Flag 0.14 (0-2.49); Squamous Epithelial 0-3 HPF (0-3); WBC/HPF 0-3 HPF (0-3)
[2018-11-01] MEDS ORDERED: Ondansetron PF 4 MG/2 ML Vial ONE (21:05)
--- NOTE | 2018-11-01 23:24 | CT ---
CT ABDOMEN AND PELVIS WITH CONTRAST: History: Abdominal pain. Comparison: CT abdomen and pelvis, 01-06-18. FINDINGS: Lung bases are clear. No pericardial effusion. The appendix is visualized and is normal. Extensive diverticular disease of the sigmoid colon without active apparent inflammation. No dilated loops of large or small bowel. No free intraperitoneal gas or fluid. No retroperitoneal ad enopathy. The gallbladder, liver, pancreas unremarkable. Numerous splenic calcified granulomas. No hydronephros is. Celiac trunk and superior mesenteric arteries are patent. Moderate facet arthropathy of the lumbar spine. 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 IMPRESSION: 1. No acute inflammatory process within the abdomen or pelvis. 2. Likely flash filling hemangioma hepatic segment 2. 3. Normal appendix. POS: [facility]
[2018-11-02 00:07] LABS: Amphetamine Not Detected (NotDetected); Barbiturates Screen Not Detected (NotDetected); Benzodiazepine Screen Not Detected (NotDetected); Cocaine Metabolite Screen Not Detected (NotDetected); Medtox Control Line Valid? VALID (VALID); Medtox Reader # READER 4; Methadone Not Detected (NotDetected); Methamphetamine Not Detected (NotDetected); Opiate Screen Not Detected (NotDetected); Oxycodone Screen Not Detected (NotDetected); Phencyclidine (PCP) Not Detected (NotDetected); THC/Cannabinoid Screen Not Detected (NotDetected); Tricyclic Screen Not Detected (NotDetected)
[2018-11-02] MEDS ORDERED: Ondansetron PF 4 MG/2 ML Vial ONE (03:07)
[2018-11-02] MEDS ORDERED: Lorazepam 2 MG/ML VIAL ONE (03:18)
== END 2018-11-02 04:12 ==
LOC: ERS 19:42
DX: S06.0X9A Concussion with loss of consciousness of unspecified duration, initial encounter (principal); R10.9 Unspecified abdominal pain; E03.9 Hypothyroidism, unspecified; E78.5 Hyperlipidemia, unspecified; F41.9 Anxiety disorder, unspecified; F32.9 Major depressive disorder, single episode, unspecified; F17.210 Nicotine dependence, cigarettes, uncomplicated; Z79.899 Other long term (current) drug therapy; W19.XXXA Unspecified fall, initial encounter
CPT/HCPCS: 36415; 70450; 74177; 80053; 80306; 80307; 81003; 81015; 82550; 85025; 85610; 85730; 93005; 96374; 96375; 96376; J2060; J2405; Q9966

== ENCOUNTER 2018-11-11 14:10 | Outpatient (CLI) | payer MEDICARE ==
--- NOTE | 2018-11-11 15:53 | CT ---
CT BRAIN WITHOUT CONTRAST: Comparison: 11-01-18, 10-28-18 History: Two cerebral hemorrhages and a concussion after a fall in October 2018. Follow up exam. Technique: Multiple contiguous axial images were obtained in a CT of the brain without contrast. FINDINGS: There are scattered hypodensities in the subcortical and periventricular white matter. There is no ev idence of hydrocephalus, intracranial hemorrhage or extraaxial fluid collection on the current examin ation. The calvarium and overlying soft tissues are unremarkable. Post-surgical changes are seen in the sinu ses and nasopharynx. The mastoid air cells are well aerated. IMPRESSION: 1. No evidence of acute intracranial abnormality. 2. Small vessel ischemic disease. POS: [facility]
== END 2018-11-11 14:11 | disposition home or self-care (01) ==
LOC: TBSIIMAG 14:10
PROVIDERS: ATTEND Surgery
DX: S06.6X0D Traumatic subarachnoid hemorrhage without loss of consciousness, subsequent encounter (principal)
CPT/HCPCS: 70450

== ENCOUNTER 2019-01-14 12:16 | Emergency (ER) | payer MEDICARE ==
[2019-01-14 12:58] LABS: #Eosinphils 0.3 thou/uL (0.0-0.7); #Lymphocytes 1.9 thou/uL (1.20-3.40); #Monocytes 0.7 thou/uL (0.11-0.59); #Neutrophils 5.1 thou/uL (1.40-6.50); %Basophils 0.5 % (0.0-1.0); %Eosinophils 3.8 % (0.0-10.0); %Lymphocytes 23.2 % (21.0-51.0); %Monocytes 8.9 % (0.0-10.0); %Neutrophils 63.5 % (42.0-75.0); Hemoglobin 14.9 g/dL (12.0-16.0); Mean Corpuscular HGB CONC 32.9 g/dL (32.0-36.0); Mean Corpuscular Hemoglobin 28.9 pg (27.0-31.0); Mean Corpuscular Volume 87.7 fL (78.0-98.0); Mean Platelet Volume 8.7 fL (7.4-10.4); Platelet Count 239 thou/uL (130-400); RBC Distribution Width 13.2 % (11.5-14.5); Red Blood Cell (RBC) Count 5.16 mill/uL (4.20-5.40)
[2019-01-14 13:16] LABS: ALT (SGPT) 19 U/L (8-55); AST (SGOT) 21 U/L (5-34); Albumin 4.1 g/dL (3.4-4.8); Alkaline Phosphatase 85 U/L (40-150); Anion Gap 13 mmol/L (10-20); BUN (Urea Nitrogen) 21 mg/dL (9.8-20.1); Bilirubin, Total 0.4 mg/dL (0.2-1.2); CK (CPK) 105 U/L (29-168); Calc. Creatinine Clearance 0 mL/min (70-130); Calcium 9.3 mg/dL (7.8-10.44); Carbon Dioxide 26 mmol/L (23-31); Chloride 104 mmol/L (98-107); Estimated GFR-MDRD 63; Globulin 2.2 g/dL (2.4-3.5); Glucose 104 mg/dL (83-110); Potassium 4.2 mmol/L (3.5-5.1); Protein, Total 6.3 g/dL (6.0-8.3); Sodium 139 mmol/L (136-145)
--- NOTE | 2019-01-14 13:49 | RAD ---
EXAM: Chest Two Views 01/14/2019 1:46 PM HISTORY: Chest pain COMPARISON: November 10, 2017 FINDINGS: Heart: Normal in size and contour. Pulmonary vessels: Normal. Costophrenic angles: Clear. Lungs: No confluent pneumonia, overt edema, pleural effusion, or other acute process. Pneumothorax: None. Osseous structures:There is stable spondylosis thoracic spine. There is stable postsurgical change of a right rotator cuff repair. There is scattered degenerative and osteoarthritic change present. Additional findings: None. IMPRESSION: No significant acute intrathoracic disease.
[2019-01-14] MEDS ORDERED: Aspirin Chewable 81 MG TAB ONE (14:36)
[2019-01-14] MEDS ORDERED: Nitroglycerin 2% Ointment 1 INCH/1 GM Packet ONE (14:36)
== END 2019-01-14 17:22 | disposition home or self-care (01) ==
LOC: ERS 12:16
DX: I10 Essential (primary) hypertension (principal); E03.9 Hypothyroidism, unspecified; F17.210 Nicotine dependence, cigarettes, uncomplicated; F41.9 Anxiety disorder, unspecified; Z79.899 Other long term (current) drug therapy
CPT/HCPCS: 36415; 71046; 80053; 82550; 83880; 84484; 85025; 93005

== ENCOUNTER 2019-04-08 13:32 | Outpatient (CLI) | payer MEDICARE ==
--- NOTE | 2019-04-08 16:03 | CT ---
LOW DOSE NONCONTRAST CT PULMONARY LUNG SCAN 04/08/19 HISTORY: Difficulty breathing. Tobacco abuse. 65 year smoking history. COMPARISON: None. FINDINGS: There is minimal symmetric biapical pleural and parenchymal scarring. There are linear densities seen within the lingula and right middle lobe as well as involving the lower lobes bilaterally likely rel ated to areas of scarring or possibly associated atelectasis. No discrete pulmonary nodule, mass, or pleural effusion is identified. A few scattered calcified gran ulomata are identified. Calcified mediastinal and right hilar lymph nodes are seen with calcified gra nulomata seen in the spleen. Lack of intravenous contrast does limit evaluation of the vascular structures and the mediastinum, bu t no definite enlarged lymph nodes are seen. Vascular calcifications are seen in the thoracic and visualized upper abdominal aorta and to a lesser extent involving the coronary arteries. Mild degenerative changes are seen in the spine. There is herniation of fat at the posteromedial aspect right lung base. This is also seen on prior CT abdomen and pelvis on 01/06/18. IMPRESSION: 1. Lung RADS category 1, no pulmonary nodule is seen within the lungs bilaterally. Continued an nual screening with low dose CT scan in twelve (12) months is recommended. 2. Category S, no additional clinically suspicious findings are identified which require follow- up evaluation. 3. Scarring and/or atelectasis at each lung base. POS: [facility]
== END 2019-04-08 13:33 | disposition home or self-care (01) ==
LOC: CT 13:32
PROVIDERS: ATTEND Family Medicine
DX: F17.210 Nicotine dependence, cigarettes, uncomplicated (principal); J43.1 Panlobular emphysema; R91.8 Other nonspecific abnormal finding of lung field; J98.11 Atelectasis
CPT/HCPCS: G0297

== ENCOUNTER 2019-06-04 15:15 | Outpatient (CLI) | payer MEDICARE ==
--- NOTE | 2019-06-04 16:27 | MRI ---
Brain MRI without contrast: 06/04/2019 COMPARISON: None HISTORY: Concussion, prior intracranial hemorrhage, dizziness with headaches TECHNIQUE: Multiplanar multisequence MR imaging of the brain is obtained without contrast FINDINGS: The diffusion weighted imaging demonstrates no evidence for acute infarction. There is mucosal thickening involving the posterior aspect of the maxillary sinus on the left. The pa tient appears status post extensive prior paranasal sinus surgery. There is a probable defect in the nasal septum and some nodularity of the contents of the nasal cavity anteriorly on the left, inco mpletely assessed on this exam. Arterial flow voids at the axial level of the skull base appear unremarkable on the T2-weighted imagi ng. Regional bone marrow signal intensity is within normal limits. There are numerous foci of increased T2 and FLAIR signal within the periventricular, deep, and subcor tical white matter, as well as within the niki, evidence of significant small vessel disease. There is encephalomalacia involving the posterior inferior aspect of the right occipital lobe. The gradient echo imaging demonstrates no evidence for acute infarction. IMPRESSION: There is prominent small vessel disease with no evidence for intracranial hemorrhage or a cute infarction. Findings suggesting extensive prior paranasal sinus disease with probable defect involving the osseou s nasal septum as well as nodularity in the anterior aspect of the nasal cavity on the left. This could be better assessed with a follow-up CT examination if clinically warranted.
== END 2019-06-04 15:16 | disposition home or self-care (01) ==
LOC: SCSMRI 15:15
PROVIDERS: ATTEND Family Medicine
DX: R42 Dizziness and giddiness (principal); I73.9 Peripheral vascular disease, unspecified; J32.9 Chronic sinusitis, unspecified
CPT/HCPCS: 70551

== ENCOUNTER 2020-06-28 15:09 | Outpatient (CLI) | payer MEDICARE ==
--- NOTE | 2020-06-28 15:52 | CT ---
CT chest noncontrast low-dose screening HISTORY: Nicotine dependence. COMPARISON: 04/08/2019. FINDINGS: Lungs remain hyperinflated with scattered areas of interstitial scarring and mild periphera l thickening. Calcified granulomata and mediastinal lymph nodes are consistent with healed granulomatous disease. A 0.5 cm nodule within the medial segment right middle lobe is stable. A 0.3 cm nodule within the lat eral segment right middle lobe is stable. A 0.5 cm nodule at the right lung apex is unchanged. Lack of contrast limits evaluation of the soft tissues. There is calcification within the arterial st ructures. IMPRESSION : Lung RADS category 2. Benign. Suggest routine screening. Atherosclerosis. Emphysema and other chronic-type findings are stable.
== END 2020-06-28 15:10 | disposition home or self-care (01) ==
LOC: BICCT 15:09 → CT 15:10
PROVIDERS: ATTEND Family Medicine
DX: Z12.2 Encounter for screening for malignant neoplasm of respiratory organs (principal); F17.210 Nicotine dependence, cigarettes, uncomplicated; J43.9 Emphysema, unspecified; I70.90 Unspecified atherosclerosis
CPT/HCPCS: G0297